=== PATIENT | male | born 2000 | race Two or more races ===

== ENCOUNTER 2020-01-19 19:27 | Emergency (ER) | payer MEDICAID ==
[~2020-01-19] VITALS: Ht 182.9 cm; Wt 80.0 kg
[2020-01-19] MEDS ORDERED: HYDROCODONE/ACETAMINOPHEN 5/325MG TABLET PO STA (20:34)
[2020-01-19 22:42] VITALS: BP 128/78
== END 2020-01-19 22:31 | disposition home or self-care (01) ==
LOC: ER 19:27
DX: S16.1XXA Strain of muscle, fascia and tendon at neck level, initial encounter (principal); S00.83XA Contusion of other part of head, initial encounter; V49.49XA Driver injured in collision with other motor vehicles in traffic accident, initial encounter; Y93.89 Activity, other specified; Y92.89 Other specified places as the place of occurrence of the external cause; Y99.8 Other external cause status
CPT/HCPCS: 73562; 99285